=== PATIENT | female | born 1960 | race Caucasian/White ===

== ENCOUNTER → 2021-07-23 | Day surgery (SDC) | payer BC ==
[~2021-07-23] MED LIST: CLONIDINE HCL0.1 MG PO; CYMBALTA20 MG PO; METFORMIN HCL500 M2 PO; PANTOPRAZOLE SO40 MG PO; VALACYCLOVIR500 MG PO; Z.0.CELEXA20 MG PO
[2021-07-23 18:00] VITALS: BP 135/92
== END | disposition home or self-care (01) ==
LOC: OR 12:07
PROVIDERS: ATTEND Internal Medicine Gastroenterology
DX: Z12.11 Encounter for screening for malignant neoplasm of colon (principal); D12.2 Benign neoplasm of ascending colon; K31.7 Polyp of stomach and duodenum; K29.70 Gastritis, unspecified, without bleeding; K63.9 Disease of intestine, unspecified; K20.90 Esophagitis, unspecified without bleeding; K22.8 Other specified diseases of esophagus; K64.8 Other hemorrhoids; G47.33 Obstructive sleep apnea (adult) (pediatric); E11.9 Type 2 diabetes mellitus without complications; K21.9 Gastro-esophageal reflux disease without esophagitis; N20.0 Calculus of kidney; F41.9 Anxiety disorder, unspecified; F32.9 Major depressive disorder, single episode, unspecified; Z01.810 Encounter for preprocedural cardiovascular examination; Z01.812 Encounter for preprocedural laboratory examination; Z20.822 Contact with and (suspected) exposure to COVID-19; Z79.84 Long term (current) use of oral hypoglycemic drugs
CPT/HCPCS: 36415; 43239; 45380; 45385; 82948; 93005; U0002